=== PATIENT | female | born 1950 | race Caucasian/White ===

== ENCOUNTER 2017-10-22 01:08 | Inpatient (IN) | payer OTHER ==
[~2017-10-22] VITALS: Ht 147.3 cm; Wt 39.9 kg
[~2017-10-22 01:08] MED LIST: ATORVASTATIN CA40 M1 PO; LAC PO; LEVAQUIN750 MG PO; NOR10T PO; TRAMADOL HCL50 MG PO
[2017-10-22 01:15] VITALS: Ht 147.3 cm; Wt 39.9 kg
[2017-10-22 01:52] LABS: BASOPHIL % 2.4 % (0-2); PLATELET COUNT 401 x10^3mcL (130-400); RED CELL DISTRIBUTION WIDTH 15.8 % (11.5-14.5)
[2017-10-22 01:59] LABS: CALCIUM 8.6 mg/dL (8.5-10.1); CARBON DIOXIDE 26.1 mmol/L (21-32); CHLORIDE SERUM 106 mmol/L (98-107); CREATININE SERUM 0.5 mg/dL (0.6-1.0); GFR1 > 60 mL/min; GLUCOSE SERUM 111 mg/dL (74-106); POTASSIUM SERUM 4.6 mmol/L (3.5-5.1); SODIUM SERUM 133 mmol/L (136-145)
[2017-10-22 02:04] LABS: ALBUMIN 2.8 g/dL (3.4-5.0); ALKALINE PHOSPHATASE 121 U/L (46-116); ALT/SGPT 14 U/L (14-59); AST/SGOT 18 U/L (15-37); BILIRUBIN TOTAL 0.7 mg/dL (0.20-1.00)
[2017-10-22 06:35] VITALS: BP 176/77
[2017-10-22 06:39] LABS: MAGNESIUM 2.1 mg/dL (1.8-2.4); PHOSPHOROUS 2.8 mg/dL (2.5-4.9)
[2017-10-22 06:47] LABS: T3 TOTAL 0.98 ng/mL
[2017-10-22 06:49] LABS: FREE T4 1.4 ng/dL (0.76-1.46); FREE THYROXINE INDEX 3.5 ug/dL (1.4-4.5); T4(THYROXINE) 9.7 ug/dL (4.7-13.3)
[2017-10-22] MEDS ORDERED: OXYCONTIN PO (07:00)
[2017-10-22] MEDS ORDERED: DILAUDID4 MG PO (07:01)
[2017-10-22] MEDS ORDERED: METOPROLOL SUCC25 M2 PO (07:06)
[2017-10-22 09:42] VITALS: BP 156/75
[2017-10-22 10:14] VITALS: BP 156/75
[2017-10-22 10:44] VITALS: BP 156/75
[2017-10-22 13:51] VITALS: BP 156/75
[2017-10-22 14:01] VITALS: BP 160/70
== END 2017-10-22 16:00 | disposition short-term general hospital (02) | DRG 205 ==
LOC: ED 01:08 → DU 05:23
PROVIDERS: Emergency Medicine; Family Medicine
DX: M94.0 Chondrocostal junction syndrome [Tietze] (principal); E43 Unspecified severe protein-calorie malnutrition; J69.0 Pneumonitis due to inhalation of food and vomit; Z68.1 Body mass index [BMI] 19.9 or less, adult; C34.91 Malignant neoplasm of unspecified part of right bronchus or lung; C78.89 Secondary malignant neoplasm of other digestive organs; J90 Pleural effusion, not elsewhere classified; I10 Essential (primary) hypertension; E78.5 Hyperlipidemia, unspecified; Z95.1 Presence of aortocoronary bypass graft
CPT/HCPCS: 83880; 84439; 94150; J1170; J1956; J2270; J2405; J2543; J7030; Q0092; Q9967

== ENCOUNTER 2017-11-20 18:05 | Inpatient (IN) | payer OTHER ==
[~2017-11-20] VITALS: Ht 144.8 cm; Wt 51.8 kg
[~2017-11-20 18:05] MED LIST changes: +DILAUDID4 MG PO; +METOPROLOL SUCC25 M2 PO; +OXYCONTIN PO
[2017-11-20 19:09] LABS: PLATELET COUNT 236 x10^3mcL (130-400)
[2017-11-20 19:24] LABS: RED CELL DISTRIBUTION WIDTH 15.8 % (11.5-14.5)
[2017-11-20 19:36] LABS: BAND NEUTROPHIL 3 % (0-10); BASOPHIL 0 % (0-2); MONOCYTE 7 % (0-7); SEGMENTED NEUTROPHILS 85 % (37-75)
[2017-11-20 19:38] LABS: rbc morphology (normal/abnorm) ABNORMAL (NORMAL)
[2017-11-20 19:42] LABS: ALKALINE PHOSPHATASE 248 U/L (46-116); ALT/SGPT 16 U/L (14-59); AST/SGOT 22 U/L (15-37); BILIRUBIN TOTAL 1.48 mg/dL (0.20-1.00); CALCIUM 8.6 mg/dL (8.5-10.1); CARBON DIOXIDE 23.2 mmol/L (21-32); CHLORIDE SERUM 94 mmol/L (98-107); CREATININE SERUM 0.6 mg/dL (0.6-1.0); GFR1 > 60 mL/min; GLUCOSE SERUM 156 mg/dL (74-106); LIPASE 50 IU/L (73-393); SODIUM SERUM 130 mmol/L (136-145); TOTAL PROTEIN, SERUM 6.9 g/dL (6.4-8.2); TRIGLYCERIDES 74 mg/dL (<150)
[2017-11-20 19:46] LABS: ALBUMIN 2.4 g/dL (3.4-5.0); CHOLESTEROL 131 mg/dL (<200); CHOLESTEROL/HDL RATIO 6.9; HDL CHOLESTEROL 19 mg/dL (40-60)
[2017-11-20 20:00] LABS: T3 TOTAL 0.72 ng/mL
[2017-11-20 20:09] LABS: FREE T4 1.25 ng/dL (0.76-1.46); FREE THYROXINE INDEX 2.1 ug/dL (1.4-4.5); T4(THYROXINE) 6.1 ug/dL (4.7-13.3)
[2017-11-20] MEDS ORDERED: AMOXICILLIN/CL100 ML PO (20:32)
[2017-11-20] MEDS ORDERED: VITAMIN B121000 MCG (20:33)
[2017-11-20] MEDS ORDERED: FOLIC ACID0.8 M2 PO (20:33)
[2017-11-20] MEDS ORDERED: MUCINEX600 MG (20:34)
[2017-11-20] MEDS ORDERED: OXYCONTIN60 MG (20:34)
[2017-11-20] MEDS ORDERED: CITRACAL + D E1 EACH PO (20:35)
[2017-11-20] MEDS ORDERED: MULTI-VITAMIN1 EACH PO (20:35)
[2017-11-20] MEDS ORDERED: METOPROLOL SUCC25 M2 PO (20:36)
[2017-11-20] MEDS ORDERED: LIPITOR40 MG PO (20:36)
[2017-11-20] MEDS ORDERED: HYDROMORPHONE2 M1 PO (20:37)
[2017-11-20] MEDS ORDERED: PROMETHAZI6.25 MG/5 (20:37)
[2017-11-20 20:41] LABS: UA SPECIFIC GRAVITY >=1.030 (1.005-1.035); microscopic required? YES; urine erythrocyte NEGATIVE (NEGATIVE)
[2017-11-20 21:49] LABS: MAGNESIUM 1.9 mg/dL (1.8-2.4); PHOSPHOROUS 2.7 mg/dL (2.5-4.9)
[2017-11-20 21:52] LABS: AMPHETAMINE QUAL UR NONE DETECTED (See below)
[2017-11-20 22:20] VITALS: BP 146/97
[2017-11-20 23:51] VITALS: BP 146/97
[2017-11-21 03:01] VITALS: BP 140/115
[2017-11-21 05:25] LABS: PLATELET COUNT 247 x10^3mcL (130-400)
[2017-11-21 05:26] LABS: RED CELL DISTRIBUTION WIDTH 15.9 % (11.5-14.5)
[2017-11-21 05:34] LABS: CARBON DIOXIDE 24.7 mmol/L (21-32); CHLORIDE SERUM 98 mmol/L (98-107); CREATININE SERUM 0.6 mg/dL (0.6-1.0); GFR1 > 60 mL/min; GLUCOSE SERUM 216 mg/dL (74-106); MAGNESIUM 1.7 mg/dL (1.8-2.4); PHOSPHOROUS 3.4 mg/dL (2.5-4.9); POTASSIUM SERUM 4.5 mmol/L (3.5-5.1); SODIUM SERUM 132 mmol/L (136-145)
[2017-11-21 05:48] LABS: BAND NEUTROPHIL 10 % (0-10); SEGMENTED NEUTROPHILS 85 % (37-75)
[2017-11-21 05:49] LABS: MONOCYTE 3 % (0-7); PLATELET MORPHOLOGY GIANT PLATELET SEEN; rbc morphology (normal/abnorm) ABNORMAL (NORMAL)
[2017-11-21 07:50] VITALS: BP 158/109
[2017-11-21 11:12] VITALS: BP 111/34
[2017-11-21 15:27] VITALS: BP 104/55
[2017-11-21 20:04] VITALS: BP 131/77
[2017-11-22] VITALS: BP 144/112
[2017-11-22 04:01] VITALS: BP 119/70
[2017-11-22 05:39] LABS: CALCIUM 7.9 mg/dL (8.5-10.1); CARBON DIOXIDE 27.6 mmol/L (21-32); CHLORIDE SERUM 105 mmol/L (98-107); CREATININE SERUM 0.6 mg/dL (0.6-1.0); GFR1 > 60 mL/min; GLUCOSE SERUM 211 mg/dL (74-106); MAGNESIUM 2.5 mg/dL (1.8-2.4); POTASSIUM SERUM 4.1 mmol/L (3.5-5.1); SODIUM SERUM 138 mmol/L (136-145)
[2017-11-22 05:43] LABS: PLATELET COUNT 280 x10^3mcL (130-400)
[2017-11-22 05:45] LABS: BASOPHIL % 0 % (0-2); RED CELL DISTRIBUTION WIDTH 16.4 % (11.5-14.5)
[2017-11-22 07:37] VITALS: Ht 144.8 cm; Wt 51.8 kg
[2017-11-22 07:54] VITALS: BP 116/66
== END 2017-11-22 10:37 | disposition expired | DRG 871 ==
LOC: ED 18:05 → IC 21:01
PROVIDERS: General Practice; Internal Medicine Pulmonary Disease; Specialist
DX: A41.9 Sepsis, unspecified organism (principal); J96.21 Acute and chronic respiratory failure with hypoxia; J69.0 Pneumonitis due to inhalation of food and vomit; G93.41 Metabolic encephalopathy; E43 Unspecified severe protein-calorie malnutrition; N17.0 Acute kidney failure with tubular necrosis; I48.92 Unspecified atrial flutter; C34.90 Malignant neoplasm of unspecified part of unspecified bronchus or lung; C78.89 Secondary malignant neoplasm of other digestive organs; C79.51 Secondary malignant neoplasm of bone; E87.1 Hypo-osmolality and hyponatremia; J44.1 Chronic obstructive pulmonary disease with (acute) exacerbation; N39.0 Urinary tract infection, site not specified; Z68.1 Body mass index [BMI] 19.9 or less, adult; J91.0 Malignant pleural effusion; J70.0 Acute pulmonary manifestations due to radiation; E78.00 Pure hypercholesterolemia, unspecified; R65.20 Severe sepsis without septic shock; F12.90 Cannabis use, unspecified, uncomplicated; I25.10 Atherosclerotic heart disease of native coronary artery without angina pectoris; I10 Essential (primary) hypertension; E78.5 Hyperlipidemia, unspecified; I48.91 Unspecified atrial fibrillation; G89.29 Other chronic pain; I16.0 Hypertensive urgency; E83.41 Hypermagnesemia; E87.8 Other disorders of electrolyte and fluid balance, not elsewhere classified; Z66 Do not resuscitate; Z51.5 Encounter for palliative care; Z99.81 Dependence on supplemental oxygen; Z95.1 Presence of aortocoronary bypass graft; Z87.891 Personal history of nicotine dependence; D72.829 Elevated white blood cell count, unspecified; T38.0X5A Adverse effect of glucocorticoids and synthetic analogues, initial encounter; Y92.238 Other place in hospital as the place of occurrence of the external cause
CPT/HCPCS: 36600; 83880; 84439; 87804; J1170; J2060; J2405; J2543; J2920; J3475; J3490; J7030; J7050; J7613; J7644; J8597; Q0092